=== PATIENT | male | born 1990 | race Two or more races ===

== ENCOUNTER 2024-06-23 00:45 | Emergency (ER) | payer OTHER ==
[~2024-06-23] VITALS: Ht 175.3 cm; Wt 91.0 kg
[2024-06-23 01:30] VITALS: RESP 16
[2024-06-23] MEDS: cloNIDine HCL 0.1 MG TAB PO ONE ×2 (01:37→01:38)
[2024-06-23] MEDS ORDERED: ACET500T58 PO (02:27)
[2024-06-23] MEDS ORDERED: AMOX875T4 PO (02:27)
--- NOTE | 2024-06-23 02:27 | ED.PDOC ---
Eye-HPI HPI Comments 34-YEAR-OLD MALE PRESENTS TO ER WITH COMPLAINTS OF TOOTHACHE X1 DAY. PATIENT REPORTS HE HAS BEEN EXPERIENCING PAIN LOCALIZED TO RIGHT LOWER 2ND MOLAR TOOTH X1 DAY. HE RATES HIS CURRENT PAIN A 7/10 LOCALIZED TO RIGHT LOWER 2ND MOLAR TOOTH WITH RADIATION TOWARDS THE RIGHT SIDE OF HIS FACE. STATES HE HAS BEEN USING ORAJEL WITHOUT RELIEF. PATIENT REPORTS THAT HE DID BREAK HIS RIGHT LOWER 2ND MOLAR TOOTH SIX MONTHS AGO BUT NEVER FOLLOWED UP WITH A DENTIST. PATIENT PRESENTS TO ER AMBULATORY ON ARRIVAL, WITH STEADY GAIT, IN MILD DISTRESS AND IS NOTED TO BE HYPERTENSIVE ON ARRIVAL AT 189/142 AND NOTES THAT HE DOES HAVE HISTORY OF HYPERTENSION BUT DOES NOT TAKE ANY BLOOD PRESSURE MEDICATIONS. DEN IES HEADACHE, NAUSEA/VOMITING, NUMBNESS/TINGLING, FEVER, SKIN CHANGES, NECK PAIN, CHEST PAIN OR ANY FURTHER SYMPTOMS/COMPLAINTS Chief Complaint: Neck Pain Time Seen by MD: 00:46 Primary Care Provider: UNKNOWN Reviewed Notes: Nurses Notes, Medications, Allergies Allergies: Coded Allergies: NO KNOWN ALLERGIES (Unverified , 06/23/24) Home Meds Active Scripts Amoxicillin & Pot Clavulanate (Amoxicillin/Potassium Cla) 875 Mg Tab, 1 TAB PO BID for 7 Days, #14 TAB 0 Refills Prov:SUHAS MUÑOZ 06/23/24 Acetaminophen (Acetaminophen) 500 Mg Tab, 500 MG PO Q4HPRN, #30 TAB 0 Refills Prov:SUHAS MUÑOZ 06/23/24 Information Source: Patient Mode of Arrival: Ambulatory Past Medical History PAST MEDICAL HISTORY: HTN Surgical History: Denies all surgeries Family History Family History: Unknown Social History Smoker: Cigarettes, Less Than 1 Pack/Day Alcohol: Denies ETOH Use Drugs: Denies Drug Use Lives In: Home Constitutional: denies: chills, diaphoresis, fatigue, fever, malaise, sweats, weakness, others EENTM: reports: others ( STATED IN HPI) Respiratory: denies: cough, hemoptysis, orthopnea, SOB at rest, shortness of breath, SOB with excertion, stridor, wheezing, others Cardiovascular: denies: chest pain, dizzy spells, diaphoresis, Dyspnea on exertion, edema, irregular heart beat, left arm pain, lightheadedness, palpitations, PND, syncope, others Gastrointestinal: denies: abdomen distended, abdominal pain, blood streaked bowels, constipated, diarrhea, dysphagia, difficulty swallowing, hematemesis, melena, nausea, poor appetite, poor fluid intake, rectal bleeding, rectal pain, vomiting, others Genitourinary: denies: burning, dysuria, flank pain, frequency, hematuria, incontinence, penile discharge, penile sore, pain, testicle pain, testicle swelling, urgency, others Neurological: denies: dizziness, fainting, headache, left sided numbness, left sided weakness, numbness, paresthesia, pre-existing deficit, right sided numbness, right sided weakness, seizure, speech problems, tingling, tremors, weakness, others Musculoskeletal: denies: back pain, gout, joint pain, joint swelling, muscle pain, muscle stiffness, neck pain, others Integumetry: denies: bruises, change in color, change in hair/nails, dryness, laceration, lesions, lumps, rash, wounds, others Allergic/Immunocompromised: denies: Difficulty Healing, Frequent Infections, Hives, Itching, others Hematologic/Lymphatic: denies: anemia, blood clots, easy bleeding, easy bruising, swollen glands, others Endocrine: denies: excessive hunger, excessive sweating, excessive thirst, excessive urination, flushing, intolerance to cold, intolerance to heat, unexplained weight gain, unexplained weight loss, others Psychiatric: denies: anxiety, bipolar disorder, depression, hopeless, panic disorder, schizophrenia, sleepless, suicidal, others Physical Exam General Appearance: Mild Distress (DUE TO PAIN LOCALIZED TO RIGHT LOWER 2ND MOLAR TOOTH) HEENT: PERRL/EOMI, Pharynx Normal, TMs Normal, Other (BROKEN RIGHT LOWER 2ND MOLAR TOOTH NOTED, NO GUM SWELLING/ERYTHEMA OR BLEEDING/DRAINAGE NOTED. NO FACIAL SWELLING/SKIN CHANGES NOTED, PATIENT ABLE TO OPEN/CLOSE MOUTH WITHOUT DIFFICULTY) Neck: Full Range of Motion, Non-Tender, Normal Respiratory: Chest Non-Tender, Lungs Clear, No Accessory Muscle Use, No Respiratory Distress, Normal Breath Sounds Cardiovascular: No Murmur, No Gallop, Regular Rate/Rhythm Breast Exam: Deferred Gastrointestinal: NOT DONE Genitalia: Deferred Pelvic: Deferred Rectal: Deferred Extremities: Normal capillary refill, Normal range of motion Neurologic: Alert, transcription typist II-XII nml as Tested, No Motor Deficits, No Sensory Deficits Cerebellar Function: Normal Reflexes: Normal Skin: Dry, Normal Color, Warm Lymphatic: No Adenopathy Was a procedure done? Was a procedure done?: No Sedation Sedation?: No EENT DIFF Eye: N/A Mouth: Thrush, Other (DENTAL ABSCESS, BROOKS'S ANGINA, DENTAL INFECTION) X-Ray, Labs, Meds, VS Vital Signs Date Time Temp Pulse Resp B/P (MAP) Pulse Ox O2 Delivery O2 Flow Rate FiO2 06/23/24 01:37 189/142 06/23/24 01:30 98.2 104 16 189/142 (158) 97 Current Medications Medications (Trade) Dose Ordered Sig/Wei Route Start Time Stop Time Status Last Admin Clonidine HCl (Catapres Tablet) 0.2 mg ONCE ONCE PO 06/23/24 01:30 06/23/24 01:32 DC 06/23/24 01:37 Benzocaine (Hurricaine [place]) 1 spr ONCE ONCE MT 06/23/24 02:30 06/23/24 02:31 DC 06/23/24 02:36 HURRICANE SPRAY ORDERED, PATIENT EDUCATED ON PROPER USE/DOSAGE CLONIDINE 0.2 MG P.O. ORDERED PATIENT HAD IMPROVEMENT IN SYMPTOMS AND IN NO DISTRESS PRIOR TO DISCHARGE ADVISED ON IMPORTANCE OF MONITORING/RECORDING BLOOD PRESSURE READINGS CLOSELY AT HOME SMOKING CESSATION DISCUSSED AND ADVISED PATIENT PROVIDED INFORMATION WITH REGARDS TO LOCAL PCPS AND DENTIST AND ADVISED TO FOLLOW UP IN 1-2 DAYS PATIENT ALERT AND ORIENTED X4 PRIOR TO DISCHARGE. PATIENT VERBALIZED UNDERSTANDING AND AGREEABLE WITH CURRENT PLAN OF CARE ADVISED TO RETURN TO ER IMMEDIATELY IF SYMPTOMS WORSEN Time of 1ST Reevaluation: 02: Reevaluation 1ST: N/A Patient Education/Counseling: Diagnosis, Treatment, Prognosis, Need For Follow Up Family Education/Counseling: No Family Present Departure 1 Departure Time of Disposition: :22 Impression: Primary Impression: Broken tooth Qualified Codes: S02.5XXB - Fracture of tooth (traumatic), initial encounter for open fracture Additional Impressions: Odontalgia Poorly-controlled hypertension Disposition: HOME / SELF CARE / HOMELESS Condition: Stable e-Prescriptions Amoxicillin & Pot Clavulanate (Amoxicillin/Potassium Cla) 875 Mg Tab 1 TAB PO BID for 7 Days, #14 TAB 0 Refills Prov: SUHAS MUÑOZ 06/23/24 Acetaminophen (Acetaminophen) 500 Mg Tab 500 MG PO Q4HPRN, #30 TAB 0 Refills Prov: SUHAS MUÑOZ 06/23/24 Discharged With: Self Critical Care Note Critical Care Time?: No Stability Stability form required: No Heart Score Heart Score: Heart Score Response (Comments) Value History N/A 0 EKG N/A 0 Age N/A 0 Risk Factors N/A 0 Troponin N/A 0 Total 0 SUHAS MUÑOZ Jun 23, 2024 02:27
[2024-06-23] MEDS: BENZOCAINE (DENTAL) 20 % SPRAY 60ML MT ONE (02:36)
[2024-06-23 02:43] VITALS: BP 188/122; PULSE 102; O2SAT 97
== END 2024-06-23 02:48 | disposition home or self-care (01) ==
LOC: ER 00:45
DX: S02.5XXA Fracture of tooth (traumatic), initial encounter for closed fracture (principal); I10 Essential (primary) hypertension; F17.210 Nicotine dependence, cigarettes, uncomplicated; X58.XXXA Exposure to other specified factors, initial encounter; Y93.89 Activity, other specified; Y92.89 Other specified places as the place of occurrence of the external cause; Y99.8 Other external cause status